=== PATIENT | female | born 2000 | race Caucasian/White ===

== ENCOUNTER 2021-11-29 15:39 | Outpatient (CLI) | payer OTHER ==
[~2021-11-29 15:39] MED LIST: BACTRIM DS TAB1 EACH PO; BACTROBAN OINT22 GM EXT; CLARITIN 10MG T10 MG PO; DELSYM30 MG/5 ML PO; DICLEGIS DR 101 EACH PO; FLONASE 0.05% N16 GM; IBUPROFEN600 MG PO; MACROBID 100 M100 MG PO; PREDNISONE 50 M50 MG PO; PRENATAL VITAM1 EAC3 PO; ZYRTEC10 MG PO
== END 2021-11-29 22:15 | disposition home or self-care (01) ==
LOC: GENOP 15:39
DX: O99.891 Other specified diseases and conditions complicating pregnancy (principal); O36.8130 Decreased fetal movements, third trimester, not applicable or unspecified; O99.613 Diseases of the digestive system complicating pregnancy, third trimester; K82.8 Other specified diseases of gallbladder; M54.9 Dorsalgia, unspecified; R10.9 Unspecified abdominal pain; Z3A.34 34 weeks gestation of pregnancy
CPT/HCPCS: 59025; 81001; 96360; J7120

== ENCOUNTER 2021-12-14 11:41 | Inpatient (IN) | payer OTHER ==
[~2021-12-14] VITALS: Ht 172.7 cm; Wt 107.0 kg
[2021-12-14 13:35] LABS: HEMOGLOBIN 12.2 gm/dl (12.3-15.3); RED BLOOD COUNT 4.03 M/UL (4.00-5.10); WHITE BLOOD COUNT 10.6 K/UL (4.5-11.0)
[2021-12-14] MEDS ORDERED: PRENATAL VITAM1 EAC6 PO (14:09)
[2021-12-14] MEDS ORDERED: CARAFATE1 GM PO (14:10)
[2021-12-14] MEDS ORDERED: BENTYL 20MG TAB20 MG PO (14:10)
[2021-12-14] MEDS ORDERED: OMEPRAZOLE20 M1 PO (14:11)
[2021-12-14] MEDS ORDERED: PEPCID20 MG PO (14:11)
[2021-12-14] MEDS ORDERED: IBUPROFEN600 MG PO (14:53)
[2021-12-14] MEDS ORDERED: COLACE 100MG C100 MG PO (14:53)
[2021-12-14] MEDS ORDERED: HYDROCODON-ACE1 EAC6 PO (14:53)
[2021-12-15 06:57] LABS: HEMOGLOBIN 11.4 gm/dl (12.3-15.3)
== END 2021-12-16 17:55 | disposition home or self-care (01) | DRG 788 ==
LOC: GENOP 11:41 → OB 13:40
PROVIDERS: ADMIT Obstetrics & Gynecology
PROC: 4A1HXCZ Monitoring of Products of Conception, Cardiac Rate, External Approach (ICD-10-PCS; 2021-12-14)
PROC: 10D00Z1 Extraction of Products of Conception, Low, Open Approach (ICD-10-PCS; principal; 2021-12-16)
DX: O34.211 Maternal care for low transverse scar from previous cesarean delivery (principal); Z3A.36 36 weeks gestation of pregnancy; Z20.822 Contact with and (suspected) exposure to COVID-19; Z37.0 Single live birth; O99.334 Smoking (tobacco) complicating childbirth; F17.210 Nicotine dependence, cigarettes, uncomplicated; Z90.49 Acquired absence of other specified parts of digestive tract
CPT/HCPCS: 36415; 81001; 82800; 83518; 85014; 85018; 85025; C9113; J0690; J1170; J1650; J2370; J2405; J2590; J2765; J3010; J7120; U0002